=== PATIENT | female | born 1995 | race Caucasian/White ===

== ENCOUNTER 2019-05-28 19:00 | Emergency (ER) | payer SELFPAY ==
--- NOTE | 2019-05-28 19:15 | ER Report ---
History and Physical Time Seen By MD: 19:06 Hx. of Stated Complaint: dog bite HPI/ROS CHIEF COMPLAINT: dog bite thigh HISTORY OF PRESENT ILLNESS: Pt is a 23 year old female presenting with right thigh pain after being bitten by her tenants dog about an hour ago. She was able to control the bleeding but now has 2 open lacerations and 4-5 abrasions to the right lateral thigh. No allergies to animals or medications. Hasn't taken any thing for the pain. REVIEW OF SYSTEMS: Respiratory: No cough, no dyspnea. Cardiovascular: No chest pain, no palpitations. Gastrointestinal: No vomiting, no abdominal pain. Musculoskeletal: No back pain, right leg pain Allergies: Coded Allergies: No Known Drug Allergies (Unverified , 05/28/19) Home Meds Active Scripts Amoxicillin/Pot Clav 875-125 Mg Tab (AUGMENTIN 875-125 TABLET) 1 Each Tablet, 1 TAB PO Q12H for 6 Days, #12 TAB Prov:MARVA NGUYEN JOSHUA 05/28/19 Past Medical/Surgical History No pertinent past medical, surgical or family history. Constitutional Vital Sign - Last 24 Hours 05/28/19 05/28/19 05/28/19 05/28/19 19:00 19:11 19:30 20:00 Temp 99.4 Pulse 122 109 100 Resp 16 B/P (MAP) 150/110 (123) 150/110 124/86 (99) 132/83 (99) Pulse Ox 94 96 O2 Delivery Room Air Physical Exam General Appearance: The patient is alert, has no immediate need for airway protection and no current signs of toxicity. Eyes: Pupils equal and round no injection. Respiratory: Chest is non tender, lungs are clear to auscultation. Cardiac: regular rate and rhythm Gastrointestinal: Abdomen is soft and non tender, no masses, bowel sounds normal. Musculoskeletal: Neck: Neck is supple and non tender. Extremities have full range of motion and are non tender. Skin: erythema surrounding 1cm puncture wound with adipose tissue in center of right lateral thigh, 1mm puncture wound with surrounding erythema in right inguinal area, 3-4 5mm abrasions surrounding 1cm puncture wound with erythema DIFFERENTIAL DIAGNOSIS: After history and physical exam differential diagnosis was considered for dog bite, infection Medical Decision Making ED Course/Re-evaluation ED Course Patient is a 23 year old female presenting with right thigh pain due to a dog bite at her house an hour ago. The dog was her neighbors. Patient in pain with 2 puncture wounds to the right thigh, 1cm on lateral thigh, 1mm in her inguinal area and 4 abrasions ~1-2mm surrounding. Patient has no allergies to medications. Puncture wounds were numbed with 8mL 1% lidocaine with epi, cleaned and 3 4-0 prolene sutures were done in large puncture wound with room for drainage. Wound was cleaned and dressed. Patient's status improved. Laceration instructions to keep wound dry for 48 hours and return to ED or urgent care for suture removal in 7-10 days given and patient understood. Discharged. Procedure: Laceration repair. Verbal consent was obtained from the patient. The 1 cm laceration on the right upper leg was anesthetized in the usual fashion. The wound was scrubbed, draped and explored to its base with a gloved finger. There were no deep structures involved. No tendon injury was identified. The wound was repaired with 3 simple interrupted sutures loosely placed using 4-0 Prolene material. The wound repair was simple. The procedure was performed by Ana [employer] student lisandro lepe my direct supervision. Decision to Disposition Date: May 28, 2019 Decision to Disposition Time: 20:07 Depart Departure Latest Vital Signs Vital Signs Date Time Temp Pulse Resp B/P (MAP) Pulse Ox O2 Delivery O2 Flow Rate FiO2 05/28/19 20:00 100 132/83 (99) 05/28/19 19:11 99.4 16 96 Room Air Impression: Primary Impression: Dog bite Condition: Improved Disposition: HOME OR SELF-CARE New Scripts Amoxicillin/Pot Clav 875-125 Mg Tab (AUGMENTIN 875-125 TABLET) 1 Each Tablet 1 TAB PO Q12H for 6 Days, #12 TAB Prov: MARVA NGUYEN 05/28/19 Patient Instructions: Laceration (ED) Additional Instructions: Take antibiotics as prescribed until gone. Keep wound dry for the first 48 hours. Return to ED or urgent are to have stitches removed in 7-10 days. Take Ibuprofen or Tylenol as needed for pain. If pain suddenly worsens or signs of infection begin including heat, discharge or redness return to ED. Problem Qualifiers Primary Impression: Dog bite Encounter type: initial encounter Qualified Codes: W54.0XXA - Bitten by dog, initial encounter MARVA NGUYEN May 28, 2019 19:15
[2019-05-28] MEDS ORDERED: TETRACAIN/EPI/LIDO GEL 3ML SYR TP ONE (19:25)
[2019-05-28] MEDS ORDERED: DIPHTH/TETANUS/ACEL. PERTUSSIS IM ONLY ONE (19:30)
[2019-05-28 20:00] VITALS: BP 132/83
[2019-05-28] MEDS ORDERED: AMOX-559 PO (20:13)
[2019-05-28] MEDS ORDERED: AMOX/CLAV 875 MG TAB PO ONE (20:15)
== END 2019-05-28 20:18 | disposition home or self-care (01) ==
LOC: ER 19:07
DX: S71.111A Laceration without foreign body, right thigh, initial encounter (principal); S70.311A Abrasion, right thigh, initial encounter
CPT/HCPCS: 90471; 90715; 99283